=== PATIENT | female | born 1990 | race Two or more races ===

== ENCOUNTER 2016-12-24 13:18 | Emergency (ER) | payer BC ==
[2016-12-24 13:23] VITALS: BP 125/77
[2016-12-24] MEDS ORDERED: cefTRIAXone 1 GM Vial IM ONE ×2 (14:08→16:43)
[2016-12-24] MEDS ORDERED: Azithromycin 250 MG Tab PO ONE ×2 (14:09→16:44)
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
== END 2016-12-24 19:08 | disposition other institution (70) ==
LOC: LL.ED 13:18
DX: T74.21XA Adult sexual abuse, confirmed, initial encounter (principal); K21.9 Gastro-esophageal reflux disease without esophagitis; F17.210 Nicotine dependence, cigarettes, uncomplicated; Z71.6 Tobacco abuse counseling
CPT/HCPCS: 80305; 84703; 86703; 87210; 87491; 87591; 96372; 99285; A9270; J0696; 36415; 87070; 87186; 87205

== ENCOUNTER → 2019-03-19 | Outpatient (CLI) | payer BC | LOC: LL.US 07:14 | PROVIDERS: ATTEND Obstetrics & Gynecology | DX: O09.92 Supervision of high risk pregnancy, unspecified, second trimester (principal); Z3A.22 22 weeks gestation of pregnancy | CPT/HCPCS: 76805 ==